=== PATIENT | female | born 1995 | race Caucasian/White ===

== ENCOUNTER → 2020-02-20 | Outpatient (CLI) | payer BC | LOC: LAB 11:40 | DX: R51.9 Headache, unspecified (principal); R05 Cough; R06.02 Shortness of breath; R09.81 Nasal congestion; R43.9 Unspecified disturbances of smell and taste; R68.83 Chills (without fever); R19.7 Diarrhea, unspecified; Z20.828 Contact with and (suspected) exposure to other viral communicable diseases ==

== ENCOUNTER → 2020-03-19 | Outpatient (CLI) | payer BC | LOC: LAB 07:38 | DX: R05 Cough (principal); R51.9 Headache, unspecified; R06.02 Shortness of breath; R68.83 Chills (without fever); Z20.828 Contact with and (suspected) exposure to other viral communicable diseases ==

== ENCOUNTER → 2020-03-25 | Outpatient (CLI) | payer BC | LOC: LAB 18:35 | DX: R05 Cough (principal); R50.9 Fever, unspecified; R09.81 Nasal congestion; Z20.828 Contact with and (suspected) exposure to other viral communicable diseases ==